=== PATIENT | female | born 1955 | race Caucasian/White ===

== ENCOUNTER 2021-11-04 21:58 | Emergency (ER) | payer OTHER ==
[~2021-11-04] VITALS: Ht 152.4 cm; Wt 100.0 kg
[2021-11-04 22:13] VITALS: BP 160/103
[2021-11-04] MEDS ORDERED: EPINEPHrine HCL 1 MG/1 ML AMP IM ONE (22:15)
[2021-11-04] MEDS ORDERED: methylPREDNISolone SOD SUCC 125 MG/2 ML VL IV ONE (22:15)
[2021-11-04] MEDS ORDERED: TRANEXAMIC ACID 1,000 MG in SODIUM CHL 0.9% 100 ML IV ONE (22:15)
[2021-11-04] MEDS ORDERED: IPRATROPIUM BROM 0.5 MG/2.5ML INH SOL NEB ONE (23:45)
[2021-11-04] MEDS ORDERED: ALBUTEROL SULF 2.5 MG/0.5ML(0.5%) NEB SOLN NEB ONE (23:45)
== END 2021-11-05 02:08 | disposition home or self-care (01) ==
LOC: ER 22:04
DX: T78.40XA Allergy, unspecified, initial encounter (principal); T46.4X5A Adverse effect of angiotensin-converting-enzyme inhibitors, initial encounter; Y92.89 Other specified places as the place of occurrence of the external cause; I11.0 Hypertensive heart disease with heart failure; I50.9 Heart failure, unspecified
CPT/HCPCS: 94640; 96372; 96374; 99283; J0171; J2930; J7644

== ENCOUNTER 2022-01-10 20:50 | Inpatient (IN) | payer OTHER ==
[~2022-01-10] VITALS: Ht 157.5 cm; Wt 109.0 kg
[2022-01-10] MEDS ORDERED: IPRATROPIUM BROM 0.5 MG/2.5ML INH SOL NEB ONE ×2 (21:15→22:30)
[2022-01-10] MEDS ORDERED: ALBUTEROL SULF 2.5 MG/0.5ML(0.5%) NEB SOLN NEB ONE ×2 (21:15→22:30)
[2022-01-10 21:42] LABS: Basophils # (auto) 0 10 ^3/uL (0-0.2); Basophils % (auto) 0.3 % (0.0-2.0); Eosinophils # (auto) 0.1 10 ^3/uL (0-0.8); Eosinophils % (auto) 1.1 % (0.0-7.0); Hematocrit 40.2 % (36.0-46.0); Hemoglobin 13.3 g/dL (12.2-16.2); Lymphocytes # (auto) 1.7 10 ^3/uL (0.4-5.4); Lymphocytes % (auto) 12.8 % (10.0-50.0); Mean Corpuscular Hgb Conc. 33.2 g/dL (32.0-36.0); Mean Corpuscular Volume 84.5 fL (80.0-100.0); Monocytes # (auto) 1.1 10 ^3/uL (0-1.3); Monocytes % (auto) 8.3 % (0.0-12.0); Neutrophils # (auto) 10.2 10 ^3/uL (1.6-8.6); Neutrophils % (auto) 77.5 % (37.0-80.0); Nucleated Red Blood Cells % 0.1 %; Red Blood Cells 4.76 10^6/uL (4.0-5.20); Red Cell Distribution Width 15.9 % (11.8-14.3); White Blood Cell 13.2 10^3/uL (4.4-10.8)
[2022-01-10 22:20] LABS: BUN/Creatinine Ratio 13.8; Potassium 3.5 mmol/L (3.5-5.1)
[2022-01-10 22:21] LABS: Calcium 8.4 mg/dL (8.5-10.1); Total Protein 6.6 g/dL (6.4-8.2)
[2022-01-10 22:22] LABS: Bilirubin, Total 0.3 mg/dL (0.2-1.0)
[2022-01-10 22:29] LABS: Partial Thromboplastin Time 30.3 sec (24.6-33.4)
[2022-01-10] MEDS ORDERED: methylPREDNISolone SOD SUCC 125 MG/2 ML VL IV ONE (22:30)
[2022-01-10] MEDS ORDERED: MAGNESIUM SULFATE 1GM/100ML 100 ML IV ONE (22:30)
[2022-01-11] MEDS ORDERED: ONDANSETRON HCL 4 MG/2 ML VIAL IV PRN (02:15)
[2022-01-11] MEDS ORDERED: HYDROcodone-ACET 5/325MG TAB PO PRN (02:15)
[2022-01-11] MEDS ORDERED: ACETAMINOPHEN 325 MG TAB PO PRN (02:15)
[2022-01-11] MEDS ORDERED: DOCUSATE SOD 100 MG CAP PO PRN (02:15)
[2022-01-11] MEDS ORDERED: MORPHINE SULFATE INJ 2 MG/ml SYRG IV PRN (02:45)
[2022-01-11] MEDS ORDERED: NITROGLYCERIN 0.4 MG SL TAB SL PRN (02:45)
[2022-01-11] MEDS: SODIUM CHLOR 0.9% PF (SALINE LOCK) 10ML VIAL/SYR IV SCH ×2 (06:12→14:00)
[2022-01-11] MEDS: methylPREDNISolone SOD SUCC 40 MG/ML VL IV SCH ×2 (06:15→14:00)
[2022-01-11 06:39] LABS: Basophils # (auto) 0 10 ^3/uL (0-0.2); Basophils % (auto) 0.3 % (0.0-2.0); Eosinophils # (auto) 0 10 ^3/uL (0-0.8); Eosinophils % (auto) 0.1 % (0.0-7.0); Hematocrit 43.6 % (36.0-46.0); Hemoglobin 13.9 g/dL (12.2-16.2); Lymphocytes # (auto) 0.6 10 ^3/uL (0.4-5.4); Lymphocytes % (auto) 4.7 % (10.0-50.0); Mean Corpuscular Hemoglobin 27.5 pg (28.0-32.0); Mean Corpuscular Volume 85.9 fL (80.0-100.0); Monocytes # (auto) 0.1 10 ^3/uL (0-1.3); Monocytes % (auto) 1.2 % (0.0-12.0); Neutrophils # (auto) 11.7 10 ^3/uL (1.6-8.6); Neutrophils % (auto) 93.7 % (37.0-80.0); Nucleated Red Blood Cells % 0.1 %; Red Blood Cells 5.07 10^6/uL (4.0-5.20); Red Cell Distribution Width 15.9 % (11.8-14.3); White Blood Cell 12.5 10^3/uL (4.4-10.8)
[2022-01-11 07:07] LABS: Calcium 8.8 mg/dL (8.5-10.1)
[2022-01-11 07:11] LABS: BUN/Creatinine Ratio 13.5
[2022-01-11 07:12] LABS: Bilirubin, Total 0.7 mg/dL (0.2-1.0); Total Protein 6.8 g/dL (6.4-8.2)
[2022-01-11] MEDS ORDERED: FAMOTIDINE (10MG/ML) 2ML VL IV SCH (10:00)
[2022-01-11] MEDS: APIXABAN 5 MG TAB PO SCH (12:38)
[2022-01-11] MEDS ORDERED: PROM25TA5 OR (12:46)
[2022-01-11] MEDS ORDERED: MONT-8 OR (12:46)
[2022-01-11] MEDS ORDERED: APIX5TAB PO (12:46)
[2022-01-11] MEDS: IPRATROPIUM BROM 0.5 MG/2.5ML INH SOL NEB PRN ×2 (14:57→22:02)
[2022-01-11] MEDS: ALBUTEROL SULF 2.5 MG/0.5ML(0.5%) NEB SOLN NEB PRN ×2 (14:57→22:01)
[2022-01-11 23:52] VITALS: BP 133/80
[2022-01-12] MEDS: APIXABAN 5 MG TAB PO SCH ×2 (00:54→10:16)
[2022-01-12] MEDS: SODIUM CHLOR 0.9% PF (SALINE LOCK) 10ML VIAL/SYR IV SCH ×3 (00:55→14:10)
[2022-01-12] MEDS: methylPREDNISolone SOD SUCC 40 MG/ML VL IV SCH ×3 (00:55→14:16)
[2022-01-12] MEDS: ALBUTEROL SULF 2.5 MG/0.5ML(0.5%) NEB SOLN NEB PRN ×2 (03:52→13:28)
[2022-01-12] MEDS: IPRATROPIUM BROM 0.5 MG/2.5ML INH SOL NEB PRN ×2 (03:52→13:28)
[2022-01-12 07:29] LABS: Basophils # (auto) 0.1 10 ^3/uL (0-0.2); Basophils % (auto) 0.4 % (0.0-2.0); Eosinophils # (auto) 0 10 ^3/uL (0-0.8); Eosinophils % (auto) 0.1 % (0.0-7.0); Hematocrit 41.7 % (36.0-46.0); Hemoglobin 13.4 g/dL (12.2-16.2); Lymphocytes # (auto) 1.9 10 ^3/uL (0.4-5.4); Lymphocytes % (auto) 13.7 % (10.0-50.0); Mean Corpuscular Hemoglobin 27.8 pg (28.0-32.0); Mean Corpuscular Hgb Conc. 32.1 g/dL (32.0-36.0); Mean Corpuscular Volume 86.6 fL (80.0-100.0); Monocytes # (auto) 1.3 10 ^3/uL (0-1.3); Monocytes % (auto) 9.5 % (0.0-12.0); Neutrophils # (auto) 10.7 10 ^3/uL (1.6-8.6); Neutrophils % (auto) 76.3 % (37.0-80.0); Red Blood Cells 4.81 10^6/uL (4.0-5.20); Red Cell Distribution Width 15.9 % (11.8-14.3)
[2022-01-12 08:48] LABS: Potassium 3.8 mmol/L (3.5-5.1)
[2022-01-12 08:49] LABS: Albumin 2.8 g/dL (3.4-5.0); BUN/Creatinine Ratio 21.4; Bilirubin, Total 0.3 mg/dL (0.2-1.0); Calcium 9.1 mg/dL (8.5-10.1); Total Protein 6.5 g/dL (6.4-8.2)
[2022-01-12] MEDS: PANTOPRAZOLE 40 MG/10 ML VIAL INJ IV SCH ×2 (10:00→10:16)
[2022-01-12 17:22] VITALS: BP 125/88
== END 2022-01-12 15:59 | disposition home or self-care (01) | DRG 189 ==
LOC: ER 20:50 → UNDOADMIN 01-11 02:42 → TELE 01-11 02:42 → ER 01-12 17:22
PROVIDERS: ADMIT Nurse Practitioner Family; ATTEND Nurse Practitioner Family
DX: J96.21 Acute and chronic respiratory failure with hypoxia (principal); J44.1 Chronic obstructive pulmonary disease with (acute) exacerbation; I11.0 Hypertensive heart disease with heart failure; I50.9 Heart failure, unspecified; D72.829 Elevated white blood cell count, unspecified; Z86.711 Personal history of pulmonary embolism; Z87.01 Personal history of pneumonia (recurrent); Z20.822 Contact with and (suspected) exposure to COVID-19
CPT/HCPCS: 36415; 71045; 80053; 83880; 84484; 85025; 85610; 85730; 87426; 87804; 94640; 96365; 96375; C9113; G0378; J3490

== ENCOUNTER 2023-03-30 15:58 | Emergency (ER) | payer OTHER ==
[~2023-03-30] VITALS: Ht 157.5 cm; Wt 104.0 kg
[~2023-03-30 15:58] MED LIST: APIX5TAB PO; MONT-8 OR; PROM25TA10 OR
[2023-03-30 17:06] LABS: Basophils # (auto) 0 10 ^3/uL (0-0.2); Basophils % (auto) 0.4 % (0.0-2.0); Eosinophils # (auto) 0.3 10 ^3/uL (0-0.8); Eosinophils % (auto) 2.2 % (0.0-7.0); Hematocrit 40.4 % (36.0-46.0); Hemoglobin 13.2 g/dL (12.2-16.2); Lymphocytes # (auto) 1.5 10 ^3/uL (0.4-5.4); Lymphocytes % (auto) 11.8 % (10.0-50.0); Mean Corpuscular Hemoglobin 28.1 pg (28.0-32.0); Mean Corpuscular Hgb Conc. 32.6 g/dL (32.0-36.0); Mean Corpuscular Volume 86.2 fL (80.0-100.0); Monocytes # (auto) 1.4 10 ^3/uL (0-1.3); Monocytes % (auto) 11.3 % (0.0-12.0); Neutrophils # (auto) 9.5 10 ^3/uL (1.6-8.6); Neutrophils % (auto) 74.3 % (37.0-80.0); Nucleated Red Blood Cells % 0.1 %; Red Blood Cells 4.69 10^6/uL (4.0-5.20); Red Cell Distribution Width 16.9 % (11.8-14.3); White Blood Cell 12.7 10^3/uL (4.4-10.8)
[2023-03-30 17:26] LABS: Alanine Aminotransferase 20 U/L (7-40); Alkaline Phosphatase 91 U/L (46-116); Calcium 9.1 mg/dL (8.5-10.1); Chloride 102 mmol/L (98-107); INR 1.04 (0.9-1.15); Partial Thromboplastin Time 31.4 SEC (24.5-34.5); Prothrombin Time 10.9 sec (9.3-11.8)
[2023-03-30 17:27] LABS: Anion Gap 5 (5-15); Aspartate Aminotransferase 21 U/L (13-40); BUN/Creatinine Ratio 20.7 (10.0-20.0); Bilirubin, Total 0.4 mg/dL (0.2-1.0); Blood Urea Nitrogen 12 mg/dL (9-23); Carbon Dioxide 33 mmol/L (20-30); Glucose 121 mg/dL (74-106); Potassium 3.9 mmol/L (3.5-5.1); Sodium 140 mmol/L (136-145)
[2023-03-30 17:32] LABS: Lactic Acid w/Reflex 2.1 mmol/L (0.4-2.0)
[2023-03-30] MEDS ORDERED: SODIUM CHLORIDE 0.9% 1,000 ML IV ONE (17:45)
[2023-03-30] MEDS ORDERED: ACETAMINOPHEN 325 MG TAB PO ONE (17:45)
[2023-03-30] MEDS ORDERED: levoFLOXacin 750MG 150 ML IV ONE (17:45)
[2023-03-30 20:00] LABS: Free T3 3.1 pg/mL (2.3-4.2); Free T4 (Free Thyroxine) 1.04 ng/dL (0.89-1.76)
[2023-03-30 22:25] VITALS: BP 115/84; RESP 22; TEMP 99; O2SAT 93
[2023-03-30 22:35] VITALS: PULSE 131
[2023-03-31 00:23] LABS: Rapid Influenza A Negative (Negative); Rapid Influenza B Negative (Negative)
[2023-03-31 00:24] LABS: COVID19 ANTIGEN SOFIA FIA NEGATIVE (NEGATIVE)
== END 2023-03-31 00:13 | disposition left against medical advice (07) ==
LOC: ER 15:58
DX: U07.1 COVID-19 (principal); A41.9 Sepsis, unspecified organism; J18.9 Pneumonia, unspecified organism; R00.0 Tachycardia, unspecified; D72.829 Elevated white blood cell count, unspecified; R50.9 Fever, unspecified; I11.0 Hypertensive heart disease with heart failure; I50.9 Heart failure, unspecified
CPT/HCPCS: 36415; 36600; 71045; 80053; 82805; 83605; 83880; 84439; 84443; 84481; 84484; 85025; 85379; 85610; 85730; 87040; 87426; 87804; 93005; 99291

== ENCOUNTER 2023-04-11 17:47 | Emergency (ER) | payer OTHER ==
[~2023-04-11] VITALS: Ht 165.1 cm; Wt 140.0 kg
[2023-04-11 21:34] VITALS: BP 160/70; PULSE 117; RESP 22; TEMP 98; O2SAT 97
[2023-04-11] MEDS: HYDROcodone-ACET 10/325MG TAB PO ONE (22:00)
[2023-04-11] MEDS ORDERED: HYDR-4798 PO (23:55)
== END 2023-04-12 00:24 | disposition home or self-care (01) ==
LOC: EDBD 17:47 → ER 17:47
DX: S93.401A Sprain of unspecified ligament of right ankle, initial encounter (principal); I11.0 Hypertensive heart disease with heart failure; I50.9 Heart failure, unspecified; Z88.1 Allergy status to other antibiotic agents; X50.1XXA Overexertion from prolonged static or awkward postures, initial encounter; Y93.89 Activity, other specified; Y92.89 Other specified places as the place of occurrence of the external cause; Y99.8 Other external cause status
CPT/HCPCS: 73610

== ENCOUNTER 2023-10-06 09:42 | Emergency (ER) | payer OTHER ==
[~2023-10-06] VITALS: Ht 152.4 cm; Wt 136.3 kg
[~2023-10-06 09:42] MED LIST changes: +HYDR-4798 PO
[2023-10-06 10:26] VITALS: BP 134/62; PULSE 110; RESP 15; TEMP 98.1; O2SAT 94
== END 2023-10-06 10:38 | disposition home or self-care (01) ==
LOC: EDBD 09:42 → ER 09:42
DX: I83.021 Varicose veins of left lower extremity with ulcer of thigh (principal); L97.129 Non-pressure chronic ulcer of left thigh with unspecified severity; I11.0 Hypertensive heart disease with heart failure; I50.9 Heart failure, unspecified; Z88.1 Allergy status to other antibiotic agents

== ENCOUNTER 2024-05-20 11:20 | Emergency (ER) | payer OTHER ==
[~2024-05-20] VITALS: Ht 154.9 cm; Wt 100.0 kg
--- NOTE | 2024-05-20 11:36 | ED.PDOC ---
GI ASSESSMENT HPI Comments 69 year old female FLORIAN presents to the ED with chief complaint of N/V/D. Patient reports that she has been experiencing nausea, vomiting, diarrhea, and diffuse abdominal pain for the past 4 days since eating [employer]. Patient relays that her pain is currently a 4/10, slightly improved since onset. Patient denies any hematemesis, dysuria, fever, chills, melena, chest pain, or SOB. 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, Medications, Allergies Allergies: Coded Allergies: Cephalexin (Verified Allergy, Unknown, 01/11/22) Doxycycline (Verified Allergy, Unknown, 01/11/22) Lisinopril (Verified Allergy, Unknown, 10/06/23) Home Meds Active Scripts Hydrocodone-Acetaminophen (Hydrocodone Bitartrate/AC 10-325 mg) 1 Tab Tab, 1 TAB PO Q8HP PRN, #15 TAB Prov:LORRAINE BENAVIDES PAC 04/11/23 Reported Medications Montelukast Sodium (MONTELUKAST SODIUM) 10 Mg Tab, 10 MG OR, TAB 01/11/22 Apixaban Base (ELIQUIS) 5 Mg Tab, 5 MG PO BID, TAB 01/11/22 Promethazine Hcl (Promethazine Hcl) 25 Mg Tab, 5 MG OR, TAB 01/11/22 Information Source: Patient, Emergency Med Personnel Mode of Arrival: EMS Timing: Days Duration: Since onset Prehospital treatment: None Quality: Aching Vomitus: Watery Stool: Watery Severity: Moderate Recent: Possible spoiled food Recent Hx of: None Pain Location: Diffuse Modifying Factors: Nothing Associated sign and symptoms: Nausea, Vomiting, Diarrhea, Abdominal Pain Past Medical History PAST MEDICAL HISTORY: Cancer (Skin cancer), CHF, COPD, HTN, PE Past Medical History (Other): Cerebral Palsy Surgical History: Cholecystectomy, , Tonsillectomy, Denies all surgeries Surgical History (Other): Adenoidectomy, DNC, Bilateral hand surgery, bilateral foot surgery [employer] History: Denies all [employer] Hx Family History Family History: Reviewed,noncontributory to illness Social History Smoker: Non-Smoker Alcohol: Denies ETOH Use Drugs: Denies Drug Use Lives In: Home Constitutional: denies: chills, diaphoresis, fatigue, fever, malaise, sweats, weakness, others EENTM: denies: blurred vision, double vision, ear bleeding, ear discharge, ear drainage, ear pain, ear ringing, eye pain, eye redness, hearing loss, mouth pain, mouth swelling, nasal discharge, nose bleeding, nose congestion, nose pain, photophobia, tearing, throat pain, throat swelling, voice changes, others Respiratory: denies: cough, hemoptysis, orthopnea, SOB at rest, shortness of breath, SOB with excertion, stridor, wheezing, others Cardiovascular: denies: chest pain, dizzy spells, diaphoresis, Dyspnea on exertion, edema, irregular heart beat, left arm pain, lightheadedness, palpitations, PND, syncope, others Gastrointestinal: reports: abdominal pain, diarrhea, nausea, vomiting; denies: abdomen distended, blood streaked bowels, constipated, dysphagia, difficulty swallowing, hematemesis, melena, poor appetite, poor fluid intake, rectal bleeding, rectal pain, others Genitourinary: denies: abnormal vagina bleeding, burning, dyspareunia, dysuria, flank pain, frequency, hematuria, incontinence, pain, , vagina di scharge, urgency, others Neurological: denies: dizziness, fainting, headache, left sided numbness, left sided weakness, numbness, paresthesia, pre-existing deficit, right sided numbness, right sided weakness, seizure, speech problems, tingling, tremors, weakness, others Musculoskeletal: denies: back pain, gout, joint pain, joint swelling, muscle pain, muscle stiffness, neck pain, others Integumetry: denies: bruises, change in color, change in hair/nails, dryness, laceration, lesions, lumps, rash, wounds, others Allergic/Immunocompromised: denies: Difficulty Healing, Frequent Infections, Hives, Itching, others Hematologic/Lymphatic: denies: anemia, blood clots, easy bleeding, easy bruising, swollen glands, others Endocrine: denies: excessive hunger, excessive sweating, excessive thirst, excessive urination, flushing, intolerance to cold, intolerance to heat, unexplained weight gain, unexplained weight loss, others Psychiatric: denies: anxiety, bipolar disorder, depression, hopeless, panic disorder, schizophrenia, sleepless, suicidal, others All Other Systems: Reviewed and Negative Physical Exam General Appearance: Moderate Distress, Obese HEENT: Normal ENT Inspection, Pharynx Normal, TMs Normal Neck: Full Range of Motion, Non-Tender, Normal, Normal Inspection Respiratory: Chest Non-Tender, Lungs Clear, No Accessory Muscle Use, No Respiratory Distress, Normal Breath Sounds Cardiovascular: No Edema, No JVD, No Murmur, No Gallop, Normal Peripheral Pulses, Regular Rate/Rhythm Breast Exam: Deferred Gastrointestinal: Diffuse, No Organomegaly, No Pulsatile Mass, Normal Bowel Sounds, Soft, Tenderness Genitalia: Deferred Pelvic: Deferred Rectal: Deferred Extremities: No calf tenderness, Normal capillary refill, No pedal edema, Other (Patient has cerebral palsy) Musculoskeletal : Apperance: Normal Neurologic: Alert, wildlife biology internship II-XII nml as Tested, Motor Weakness, Normal Affect, Normal Mood, No Sensory Deficits Cerebellar Function: Normal Reflexes: Normal Skin: Dry, Normal Color, Warm Lymphatic: No Adenopathy EKG EKG : Pulse Rate (adult): 103 [place]: Normal Cardiac Rhythm: ST Block: None Hypertrophy: None ST: Normal Was a procedure done? Was a procedure done?: No GI differential Dx Differential Diagnosis: Gastroenteritis, Dehydration, Electrolyte Imbalance, Food Poisoning, Bacterial, Viral X-Ray, Labs, Meds, VS Vital Signs Date Time Temp Pulse Resp B/P (MAP) Pulse Ox O2 Delivery O2 Flow Rate FiO2 05/20/24 13:05 102 05/20/24 12:49 105 12 96 Nasal Cannula* 3 32 05/20/24 11:54 97.6 101 18 148/94 (112) 95 97.6 05/20/24 11:36 103 05/20/24 11:33 98.3 104 20 136/77 (96) 97 98.3 05/20/24 11:28 103 Lab Test 05/20/24 12:58 05/20/24 11:40 Range/Units Urine Color Pending Urine Clarity Pending Urine pH Pending Urine Specific [place] Pending Urine Protein Pending Urine Ketones Pending Urine Blood Pending Urine Nitrite Pending Urine Bilirubin Pending Urine Urobilinogen Pending Urine Leukocyte Esterase Pending Urine RBC Pending Urine Microscopic WBC Pending Urine Squamous Epithelial Cells Pending Urine Bacteria Pending Urine Glucose Pending White Blood Count 8.1 4.4-10.8 10^3/uL Red Blood Count 4.40 4.0-5.20 10^6/uL Hemoglobin 12.2 12.2-16.2 g/dL Hematocrit 37.0 36.0-46.0 % Mean Corpuscular Volume 83.9 80.0-100.0 fL Mean Corpuscular Hemoglobin 27.7 L 28.0-32.0 pg Mean Corpuscular Hemoglobin Concent 32.9 32.0-36.0 g/dL Red Cell Distribution Width 17.0 H 11.8-14.3 % Platelet Count 222 140-450 10^3/uL Mean Platelet Volume 7.1 6.9-10.8 fL Neutrophils (%) (Auto) 64.2 37.0-80.0 % Lymphocytes (%) (Auto) 20.2 10.0-50.0 % Monocytes (%) (Auto) 14.9 H 0.0-12.0 % Eosinophils (%) (Auto) 0.4 0.0-7.0 % Basophils (%) (Auto) 0.3 0.0-2.0 % Neutrophils # (Auto) 5.2 1.6-8.6 10 ^3/uL Lymphocytes # (Auto) 1.6 0.4-5.4 10 ^3/uL Monocytes # (Auto) 1.2 0-1.3 10 ^3/uL Eosinophils # (Auto) 0 0-0.8 10 ^3/uL Basophils # (Auto) 0 0-0.2 10 ^3/uL Nucleated Red Blood Cells 0.0 % Sodium Level 135 L 136-145 mmol/L Potassium Level 3.0 L 3.5-5.1 mmol/L Chloride Level 99 98-107 mmol/L Carbon Dioxide Level 31 20-31 mmol/L Anion Gap 5 5-15 Blood Urea Nitrogen 5 L 9-23 mg/dL Creatinine 0.60 0.550-1.02 mg/dL Glomerular Filtration Rate Calc 98 >90 mL/min BUN/Creatinine Ratio 8.3 L 10.0-20.0 Serum Glucose 117 H 74-106 mg/dL Calcium Level 9.1 8.7-10.4 mg/dL Total Bilirubin 0.4 0.2-1.0 mg/dL Aspartate Amino Transferase (AST) 23 13-40 U/L Alanine Aminotransferase (ALT) 18 7-40 U/L Alkaline Phosphatase 89 46-116 U/L Total Protein 7.1 5.7-8.2 g/dL Albumin 4.0 3.2-4.8 g/dL Lipase 29 12-53 U/L Current Medications Medications (Trade) Dose Ordered Sig/Mahad Route Start Time Stop Time Status Last Admin Sodium Chloride 500 ml @ 500 mls/hr Q1H ONCE IVB 05/20/24 11:45 05/20/24 12:44 DC 05/20/24 12:36 The patient's CBC and chemistry panel is within normal limits The patient was given normal saline at bolus of 500 cc The patient refused a CT scan and states that she only had food poisoning At this time the patient was more asymptomatic in his being discharged The patient was given a prescription of Zofran. The patient is being discharged at this time we will follow up with the primary care doctor The patient was also given Protonix Time of 1ST Reevaluation: 13:10 Reevaluation 1ST: Improved Patient Education/Counseling: Diagnosis, Treatment, Prognosis, Need For Follow Up Family Education/Counseling: No Family Present Departure 1 Departure Time of Disposition: 13:10 Impression: Primary Impression: Food poisoning Disposition: 01 HOME / SELF CARE / HOMELESS Condition: Fair Discharged With: Self Critical Care Note Critical Care Time?: No Stability Stability form required: No Heart Score Heart Score: Heart Score Response (Comments) Value History N/A 0 EKG N/A 0 Age N/A 0 Risk Factors N/A 0 Troponin N/A 0 Total 0 I personally scribed for GINI MCCORD MD ([email or web address]) on 05/20/24 at 11:36. Electronically submitted by Ronan Dale ([email or web address]). GINI MCCORD MD May 20, 2024 11:36
[2024-05-20] MEDS: MORPHINE SULFATE 4 MG/ML SYR/VIAL IV ONE (11:45)
[2024-05-20] MEDS: ONDANSETRON HCL 4 MG/2 ML VIAL IV ONE (11:45)
[2024-05-20 11:46] LABS: Basophils # (auto) 0 10 ^3/uL (0-0.2); Basophils % (auto) 0.3 % (0.0-2.0); Eosinophils # (auto) 0 10 ^3/uL (0-0.8); Eosinophils % (auto) 0.4 % (0.0-7.0); Hemoglobin 12.2 g/dL (12.2-16.2); Lymphocytes # (auto) 1.6 10 ^3/uL (0.4-5.4); Lymphocytes % (auto) 20.2 % (10.0-50.0); Mean Corpuscular Hemoglobin 27.7 pg (28.0-32.0); Mean Corpuscular Hgb Conc. 32.9 g/dL (32.0-36.0); Mean Corpuscular Volume 83.9 fL (80.0-100.0); Monocytes # (auto) 1.2 10 ^3/uL (0-1.3); Monocytes % (auto) 14.9 % (0.0-12.0); Neutrophils # (auto) 5.2 10 ^3/uL (1.6-8.6); Neutrophils % (auto) 64.2 % (37.0-80.0); Platelet Count (auto) 222 10^3/uL (140-450); White Blood Cell 8.1 10^3/uL (4.4-10.8)
[2024-05-20 11:54] VITALS: TEMP 97.6
[2024-05-20 12:03] LABS: Alanine Aminotransferase 18 U/L (7-40); Alkaline Phosphatase 89 U/L (46-116); Anion Gap 5 (5-15); Aspartate Aminotransferase 23 U/L (13-40); BUN/Creatinine Ratio 8.3 (10.0-20.0); Calcium 9.1 mg/dL (8.7-10.4); Carbon Dioxide 31 mmol/L (20-31); Chloride 99 mmol/L (98-107); Lipase 29 U/L (12-53); Total Protein 7.1 g/dL (5.7-8.2)
[2024-05-20 12:04] LABS: Bilirubin, Total 0.4 mg/dL (0.2-1.0)
[2024-05-20 12:08] LABS: Blood Urea Nitrogen 5 mg/dL (9-23); Glucose 117 mg/dL (74-106); Sodium 135 mmol/L (136-145)
[2024-05-20] MEDS: SODIUM CHLORIDE 0.9% 500 ML IVB ONE (12:36)
[2024-05-20 12:49] VITALS: PULSE 105; RESP 12; O2SAT 96
[2024-05-20] MEDS ORDERED: PANT40TA2 PO (13:19)
[2024-05-20] MEDS ORDERED: ZOFR4T PO (13:19)
[2024-05-20 13:37] LABS: Urine Bacteria FEW /hpf (None Seen); Urine Blood 2+ /uL (Negative); Urine Protein, UAD TRACE (Negative); Urine Specific Gravity 1.003 (1.001-1.035); Urine Squamous Epithelial Cell FEW /hpf (<5); Urine Urobilinogen Normal (Negative); Urine WBC 194 /HPF (0-5); Urine pH 6.5 (5.0-9.0)
[2024-05-20 13:49] LABS: Urine Clarity Cloudy (Clear); Urine Color Light-Yellow (Yellow)
[2024-05-20 13:50] VITALS: BP 140/89; PULSE 103; RESP 18; O2SAT 95
[2024-05-20] MEDS ORDERED: CIPR-173 PO (14:15)
[2024-05-20] MEDS: POTASSIUM CHL 20 Meq TABLET PO ONE (14:23)
[2024-05-20] MEDS: POTASSIUM EFFERVESENT TAB 25 MEQ PO ONE (14:26)
--- NOTE | 2024-05-23 06:57 | ECG ---
[facility] Test Date: 2024-05-20 Test Time: 11:28:37 Pat Name: GAGE NELSON Department: ED Room: Gender: F Access Assoc: jamison : 1955 Requested By: GINI MCCORD Order Number: [id number] Reading MD: Measurements Intervals [place] Rate: 103 P: 46 NE: 177 QRS: -9 QRSD: 75 T: 36 QT: 364 QTc: 477 Interpretive Statements Sinus tachycardia Low voltage, precordial leads Please click the below link to view image of tracing.
== END 2024-05-20 14:41 | disposition home or self-care (01) ==
LOC: EDUNIT# 11:20 → EDBD 11:20 → ER 11:24
DX: A05.9 Bacterial foodborne intoxication, unspecified (principal); I11.0 Hypertensive heart disease with heart failure; I50.9 Heart failure, unspecified; J44.9 Chronic obstructive pulmonary disease, unspecified; G80.9 Cerebral palsy, unspecified; Z85.828 Personal history of other malignant neoplasm of skin; Z90.49 Acquired absence of other specified parts of digestive tract; Z90.89 Acquired absence of other organs; Z98.890 Other specified postprocedural states; Z88.1 Allergy status to other antibiotic agents; Z88.8 Allergy status to other drugs, medicaments and biological substances
CPT/HCPCS: 36415; 80053; 81001; 83690; 85025; 96361; 96374; 99283; J2405; J7040; 93005

== ENCOUNTER 2024-06-15 05:16 | Inpatient (IN) | payer OTHER, MEDICARE ==
[~2024-06-15] VITALS: Ht 160 cm; Wt 99.6 kg
[~2024-06-15 05:16] MED LIST changes: +CIPR-173 PO; +PANT40TA2 PO; +ZOFR4T PO
--- NOTE | 2024-06-15 05:46 | ECG ---
[facility] Test Date: 2024-06-15 Test Time: 05:40:54 Pat Name: GAGE NELSON Department: ED Room: [address] [place] [address] Gender: F Housing Officer: OBINNA : 1955 Requested By: EMERGENCY EMERGENCY Order Number: [id number] Reading MD: Kurtis Shen Measurements Intervals [place] Rate: 97 P: 56 SC: 201 QRS: -15 QRSD: 72 T: 28 QT: 388 QTc: 493 Interpretive Statements Sinus rhythm Low voltage, precordial leads Left ventricular hypertrophy Anterior Q waves, possibly due to LVH Electronically Signed On 06-15-2024 17:11:12 PDT by Kurtis Shen Please click the below link to view image of tracing.
[2024-06-15 05:50] VITALS: PULSE 100; RESP 18; O2SAT 97
[2024-06-15 06:26] LABS: Basophils # (auto) 0 10 ^3/uL (0-0.2); Basophils % (auto) 0.3 % (0.0-2.0); Eosinophils # (auto) 0.1 10 ^3/uL (0-0.8); Eosinophils % (auto) 0.4 % (0.0-7.0); Hematocrit 38.5 % (36.0-46.0); Hemoglobin 12.7 g/dL (12.2-16.2); Lymphocytes # (auto) 1.1 10 ^3/uL (0.4-5.4); Lymphocytes % (auto) 8.3 % (10.0-50.0); Mean Corpuscular Hemoglobin 27.2 pg (28.0-32.0); Mean Corpuscular Hgb Conc. 33.1 g/dL (32.0-36.0); Mean Corpuscular Volume 82.2 fL (80.0-100.0); Monocytes # (auto) 0.8 10 ^3/uL (0-1.3); Monocytes % (auto) 5.9 % (0.0-12.0); Neutrophils # (auto) 11.4 10 ^3/uL (1.6-8.6); Neutrophils % (auto) 85.1 % (37.0-80.0); Platelet Count (auto) 228 10^3/uL (140-450); Red Blood Cells 4.68 10^6/uL (4.0-5.20); White Blood Cell 13.4 10^3/uL (4.4-10.8)
--- NOTE | 2024-06-15 07:22 | ED.PDOC ---
GI ASSESSMENT HPI Comments 69 y/o F, BIBA, with PMHx of skin cancer, COPD, HTN, and PE presents to the ED for CC of abdominal pain. EMS reports, patient is coming from home where she complains of generalized abdominal pain with associated nausea and vomiting [id number]. Patient relays, that she ate tortilla chips and chocolate covered almonds last night (06/14/24); when symptoms began shortly after. Patient was recently seen at [facility] for similar symptoms on 05/20/24 for DX: Food Poisoning. Patient denies change in diet, fever, chills, or diarrhea. No other symptoms or modifying factors present at this time. Chief Complaint: Abdominal Pain Time Seen by MD: 06:45 Primary Care Provider: DALIA Reviewed Notes: Nurses Notes, Mold Machine Operator Notes, Medications, Allergies Allergies: Coded Allergies: Cephalexin (Verified Allergy, Unknown, 01/11/22) Doxycycline (Verified Allergy, Unknown, 01/11/22) Lisinopril (Verified Allergy, Unknown, 10/06/23) Home Meds Active Scripts Ciprofloxacin Hcl (Cipro) 500 Mg Tab, 1 TAB PO BID, #14 TAB Prov:GINI MCCORD MD 05/20/24 Pantoprazole Sodium Sesquihydr (Protonix) 40 Mg Tab, 40 MG PO DAILY, #30 TAB Prov:GINI MCCORD MD 05/20/24 Ondansetron Odt 4MG Tab (ZOFRAN PO) 4 Mg Tb, 4 MG PO Q8HP PRN for 7 Days, #21 TAB ODT TAB-DISSOLVE IN MOUTH, THEN SWALLOW Prov:GINI MCCORD MD 05/20/24 Hydrocodone-Acetaminophen (Hydrocodone Bitartrate/AC 10-325 mg) 1 Tab Tab, 1 TAB PO Q8HP PRN, #15 TAB Prov:LORRAIEN BENAVIDES PAC 04/11/23 Reported Medications Montelukast Sodium (MONTELUKAST SODIUM) 10 Mg Tab, 10 MG OR, TAB 01/11/22 Apixaban Base (ELIQUIS) 5 Mg Tab, 5 MG PO BID, TAB 01/11/22 Promethazine Hcl (Promethazine Hcl) 25 Mg Tab, 5 MG OR, TAB 01/11/22 Information Source: Patient, Emergency Med Personnel Mode of Arrival: EMS Timing: Hours Duration: Since onset Prehospital treatment: None Quality: None Vomitus: Watery Stool: Normal Severity: Moderate Recent: None Recent Hx of: None Pain Location: LLQ Modifying Factors: Nothing Associated sign and symptoms: Nausea, Vomiting Past Medical History PAST MEDICAL HISTORY: Cancer, COPD, HTN, PE Surgical History: Cholecystectomy, , Tonsillectomy, Denies all surgeries [employer]SH[employer] History: Denies all [employer] Hx Family History Family History: Reviewed,noncontributory to illness Social History Smoker: Non-Smoker Alcohol: Denies ETOH Use Drugs: Denies Drug Use Lives In: Home Constitutional: denies: chills, diaphoresis, fatigue, fever, malaise, sweats, weakness, others EENTM: denies: blurred vision, double vision, ear bleeding, ear discharge, ear drainage, ear pain, ear ringing, eye pain, eye redness, hearing loss, mouth pain, mouth swelling, nasal discharge, nose bleeding, nose congestion, nose pain, photophobia, tearing, throat pain, throat swelling, voice changes, others Respiratory: denies: cough, hemoptysis, orthopnea, SOB at rest, shortness of breath, SOB with excertion, stridor, wheezing, others Cardiovascular: denies: chest pain, dizzy spells, diaphoresis, Dyspnea on exertion, edema, irregular heart beat, left arm pain, lightheadedness, palpitations, PND, syncope, others Gastrointestinal: reports: abdominal pain, nausea, vomiting; denies: abdomen distended, blood streaked bowels, constipated, diarrhea, dysphagia, difficulty swallowing, hematemesis, melena, poor appetite, poor fluid intake, rectal bleeding, rectal pain, others Genitourinary: denies: abnormal vagina bleeding, burning, dyspareunia, dysuria, flank pain, frequency, hematuria, incontinence, pain, , vagina discharge, urgency, others Neurological: denies: dizziness, fainting, headache, left sided numbness, left sided weakness, numbness, paresthesia, pre-existing deficit, right sided numbness, right sided weakness, seizure, speech problems, tingling, tremors, weakness, others Musculoskeletal: denies: back pain, gout, joint pain, joint swelling, muscle pain, muscle stiffness, neck pain, others Integumetry: denies: bruises, change in color, change in hair/nails, dryness, laceration, lesions, lumps, rash, wounds, others Allergic/Immunocompromised: denies: Difficulty Healing, Frequent Infections, Hives, Itching, others Hematologic/Lymphatic: denies: anemia, blood clots, easy bleeding, easy bruising, swollen glands, others Endocrine: denies: excessive hunger, excessive sweating, excessive thirst, excessive urination, flushing, intolerance to cold, intolerance to heat, unexplained weight gain, unexplained weight loss, others Psychiatric: denies: anxiety, bipolar disorder, depression, hopeless, panic disorder, schizophrenia, sleepless, suicidal, others All Other Systems: Reviewed and Negative Physical Exam General Appearance: Moderate Distress, Obese HEENT: Normal ENT Inspection, PERRL/EOMI Neck: Full Range of Motion, Non-Tender, Normal, Normal Inspection Respiratory: Chest Non-Tender, Lungs Clear, No Accessory Muscle Use, No Respiratory Distress, Normal Breath Sounds Cardiovascular: No Edema, No JVD, No Murmur, No Gallop, Normal Peripheral Pulses, Regular Rate/Rhythm Breast Exam: Deferred Gastrointestinal: Diffuse, Distended, LLQ, No Organomegaly, No Pulsatile Mass, Tenderness, Other (Morbid obesity) Genitalia: Deferred Pelvic: Deferred Rectal: Deferred Extremities: Decreased range of motion, Inflammation, Leg edema, Pedal edema, Slow capillary refill, Swelling, Tender, Other (Venous stasis dermatitis and fluid retention to both legs) Neurologic: Other (Patient with cerebral palsy) Cerebellar Function: NOT DONE Reflexes: NOT DONE Skin: Dry, Mottled, Warm Peripheral Pulses: 1+ carotid (R), 1+ carotid (L) Lymphatic: No Adenopathy Was a procedure done? Was a procedure done?: No GI differential Dx Differential Diagnosis: Diverticular disease, Gastritis/PUD, Gastroenteritis, Pancreatitis, UTI, Dehydration, Diabetes/ DKA, Drug toxicity, Electrolyte Imbalance, Food Poisoning, Bacterial, Viral, Renal Failure, Anemia X-Ray, Labs, Meds, VS Vital Signs Date Time Temp Pulse Resp B/P (MAP) Pulse Ox O2 Delivery O2 Flow Rate FiO2 06/15/24 12:13 100 18 115/72 (86) 90 06/15/24 12:00 102 06/15/24 10:10 105 18 132/64 06/15/24 10:09 105 17 132/64 (86) 97 06/15/24 09:26 108 16 131/68 06/15/24 08:00 106 06/15/24 08:00 98.0 106 18 141/84 (103) 91 98.0 06/15/24 07:30 104 19 95 Nasal Cannula* 3 32 06/15/24 05:55 97.8 104 18 160/80 (106) 99 97.8 06/15/24 05:50 100 18 97 Nasal Cannula* 3 32 06/15/24 05:40 97 06/15/24 05:24 97.8 90 24 146/99 (115) 100 97.8 Lab Test 06/15/24 06:48 06/15/24 06:35 06/15/24 05:45 Range/Units Sodium Level 139 136-145 mmol/L Potassium Level 3.3 L 3.5-5.1 mmol/L Chloride Level 100 98-107 mmol/L Carbon Dioxide Level 29 20-31 mmol/L Anion Gap 10 5-15 Blood Urea Nitrogen 8 L 9-23 mg/dL Creatinine 0.69 0.550-1.02 mg/dL Glomerular Filtration Rate Calc 95 >90 mL/min BUN/Creatinine Ratio 11.6 10.0-20.0 Serum Glucose 156 H 74-106 mg/dL Calcium Level 9.5 8.7-10.4 mg/dL Magnesium Level 2.0 1.6-2.6 mg/dL Total Bilirubin 0.4 0.2-1.0 mg/dL Aspartate Amino Transferase (AST) 20 13-40 U/L Alanine Aminotransferase (ALT) 14 7-40 U/L Alkaline Phosphatase 117 H 46-116 U/L Total Protein 7.7 5.7-8.2 g/dL Albumin 4.3 3.2-4.8 g/dL Lipase 27 12-53 U/L Urine Color Light-brown Yellow Urine Clarity Ex.turbid Clear Urine pH 8.0 5.0-9.0 Urine Specific [place] 1.022 1.001-1.035 Urine Protein 1+ H Negative Urine Ketones Trace Negative Urine Blood 3+ H Negative /uL Urine Nitrite 1+ H Negative Urine Bilirubin Negative Negative Urine Urobilinogen Normal Negative mg/dL Urine Leukocyte Esterase 3+ Negative /uL Urine RBC 393 0 - 4 /hpf Urine WBC Clumps Present None Seen /hpf Urine Microscopic WBC 210 H 0-5 /HPF Urine Squamous Epithelial Cells Mod <5 /hpf Urine Bacteria Few H None Seen /hpf Urine Mucus Few None Seen Urine Glucose Normal Normal mg/dL White Blood Count 13.4 H 4.4-10.8 10^3/uL Red Blood Count 4.68 4.0-5.20 10^6/uL Hemoglobin 12.7 12.2-16.2 g/dL Hematocrit 38.5 36.0-46.0 % Mean Corpuscular Volume 82.2 80.0-100.0 fL Mean Corpuscular Hemoglobin 27.2 L 28.0-32.0 pg Mean Corpuscular Hemoglobin Concent 33.1 32.0-36.0 g/dL Red Cell Distribution Width 17.0 H 11.8-14.3 % Platelet Count 228 140-450 10^3/uL Mean Platelet Volume 7.9 6.9-10.8 fL Neutrophils (%) (Auto) 85.1 H 37.0-80.0 % Lymphocytes (%) (Auto) 8.3 L 10.0-50.0 % Monocytes (%) (Auto) 5.9 0.0-12.0 % Eosinophils (%) (Auto) 0.4 0.0-7.0 % Basophils (%) (Auto) 0.3 0.0-2.0 % Neutrophils # (Auto) 11.4 H 1.6-8.6 10 ^3/uL Lymphocytes # (Auto) 1.1 0.4-5.4 10 ^3/uL Monocytes # (Auto) 0.8 0-1.3 10 ^3/uL Eosinophils # (Auto) 0.1 0-0.8 10 ^3/uL Basophils # (Auto) 0 0-0.2 10 ^3/uL Nucleated Red Blood Cells 0.0 % Current Medications Medications (Trade) Dose Ordered Sig/Mahad Route Start Time Stop Time Status Last Admin Sodium Chloride 1,000 ml @ 150 mls/hr Q6H40M ONCE IV 06/15/24 07:00 06/15/24 13:39 06/15/24 07:33 Ketorolac Tromethamine (Toradol Injection) 30 mg ONCE ONCE IV 06/15/24 07:00 06/15/24 07:04 DC 06/15/24 07:33 Metoclopramide HCl (Reglan Injection) 10 mg ONCE ONCE IV 06/15/24 07:00 06/15/24 07:04 DC 06/15/24 07:33 Hydromorphone HCl (Dilaudid Injection) 1 mg ONCE ONCE IV 06/15/24 09:00 06/15/24 09:01 DC 06/15/24 09:26 [place] [id number] Ph: [phone] DIAGNOSTIC IMAGING Diagnostic Imaging Report : [id number] Signed PATIENT: GAGE NELSONCCT: [id number] UNIT: [id number] : 1955 LOC: ER ROOM / BED: / AGE / SEX: 69 / F ADM STATUS: REG ER SERVICE 9 ORDERING PHYSICIAN: EVARISTO WALSH MD PROCEDURE(s): CXRP - CHEST PORTABLE REASON: Acute abdominal pain left-sided ORDER NUMBER(s): [id number], ACCESSION NUMBER(s): [id number] CHEST RADIOGRAPH Indication: Acute abdominal pain left-sided Technique: Single frontal view of the chest was obtained COMPARISON: XY CHEST PORTABLE on DOS: 03/30/23, CHEST PORTABLE on DOS: 01/10/22, CXRP on DOS: 01/10/22 FINDINGS: Lines and Tubes: None Lungs: Increased interstitial prominence Pleura: No effusion. No pneumothorax. Cardiomediastinal contours: Cardiomegaly Bones: Unremarkable IMPRESSION: Possible mild pulmonary vascular congestion ATED BY: DOUG NELSON MD DICTATED DATE/TIME: 06/15/24743 SIGNED BY: DOUG NELSON MD SIGNED DATE/TIME: 06/15/24743 CC: [place] [id number] Ph: [phone] DIAGNOSTIC IMAGING Diagnostic Imaging Report : [id number] Signed PATIENT: GAGE NELSONCCT: [id number] UNIT: [id number] : 1955 LOC: ER ROOM / BED: / AGE / SEX: 69 / F ADM STATUS: REG ER SERVICE 9 ORDERING PHYSICIAN: EVARISTO WALSH MD PROCEDURE(s): ABPLIV - CT AB PEL WITH IV CON ONLY REASON: Acute abdominal pain diverticulitis ORDER NUMBER(s): [id number], ACCESSION NUMBER(s): [id number] Exam: CT CT AB PEL WITH IV CON ONLY History: Acute abdominal pain diverticulitis COMPARISON: None Technique: Multidetector spiral CT of the abdomen and pelvis was performed from lung bases to pubic symphysis. Intravenous contrast was administered during this examination. Portal venous imaging was obtained. Axial, coronal and sagittal multiplanar reformats were performed by the technologist on a separate workstation. Radiation Dose : Abdomen/Pelvis: CTDIvol 21 mGy, DLP 1161 mGy*cm. CONTRAST: Type of contrast: Omni 300 Contrast injected: 100 mL Findings: Lung Bases: Atelectasis and consolidation in the lung bases. Liver: Diffuse hepatic steatosis. Gallbladder and biliary Tree: Gallbladder is surgically absent. Spleen: Unremarkable Pancreas: The pancreas is normal in appearance without focal lesions or abnormal enhancement. Adrenal Glands: Unremarkable Kidneys: There is mild left hydronephrosis and hydroureter with perinephric stranding. There are calcifications along the course of the distal left ureter which are likely vascular. There are other punctate left renal calculi noted. No right hydronephrosis. Bladder: There is a calculus in the dependent bladder measuring up to 4 mm. Bowel: The stomach is grossly normal in appearance. Small bowel and colon are normal in caliber and distribution. Normal appendix is visualized in the right lower quadrant without findings of appendicitis. Sigmoid diverticulosis. Ascites: Absent Lymphadenopathy: Shotty retroperitoneal lymphadenopathy. Mildly prominent bilateral inguinal lymph nodes. Abdominal wall and Mesentery: Unremarkable. Vasculature: The visualized abdominal aorta is normal in size and caliber. Abdominal and pelvic vessels demonstrate normal enhancement. Pelvic Organs: Unremarkable Musculoskeletal: Grade 1 anterolisthesis of L5 on S1. Multilevel degenerative disease. Levoscoliosis. IMPRESSION: 1. Mild left hydronephrosis and hydroureter with associated perinephric stranding. No definite obstructing ureteral calculus identified. Calculus in the dependent bladder measuring up to 4 mm likely represents a recently passed calculus. Other nonobstructive left renal calculi noted. Urology evaluation is recommended. This could be further evaluated with CT urogram if clinically indicated. 2. Atelectasis and consolidation in the lung bases. Consider dedicated chest CT. 3. Diffuse hepatic steatosis. Sigmoid diverticulosis. No evidence of acute diverticulitis. Mildly prominent bilateral inguinal lymph nodes are nonspecific. Radiation optimization: All CT scans at this facility use at least one of these dose optimization techniques: Automated exposure control mA and/or kV adjustment per patient size (includes targeted exams where dose is matched to clinical indication) or iterative reconstruction. HS:Y ATED BY: GUANACO HOLBROOK MD DICTATED DATE/TIME: 06/15/24 110 SIGNED BY: GUANACO HOLBROOK MD SIGNED DATE/TIME: 06/15/241108 CC: X-Ray, Labs, Meds, VS Comment Course in the emergency department eventful patient came in complaining of diffuse abdominal pain mostly on the left side patient is on Eliquis she has history of cerebral palsy COPD diverticulitis vertigo had pulmonary embolism twice CBC 24880 with 85% neutrophils and normal H&H CMP shows a potassium of 3.3 with a sugar of 156 Urine shows 1+ protein 3+ blood 1+ nitrites 3+ leukocyte esterase white BC clumps and bacteria Lipase 27 Magnesium 2.0 Chest x-ray shows pulmonary vascular congestion with cardiomegaly CT abdomen and pelvis shows bibasilar consolidations left hydronephrosis and ureteral with a calculus 4 mm in the bladder diffuse hepatic steatosis and multilevel DJD Time of 1ST Reevaluation: 07:15 Reevaluation 1ST: Unchanged Reevaluation 2ND: Unchanged Patient Education/Counseling: Diagnosis, Treatment, Prognosis Family Education/Counseling: Diagnosis, Treatment, Prognosis, No Family Present Departure 1 Departure Time of Disposition: 13:21 Impression: Primary Impression: COPD with acute exacerbation Additional Impressions: Community acquired bilateral lower lobe pneumonia Pyelonephritis Hypokalemia Hydronephrosis concurrent with and due to calculi of kidney and ureter Calculus in bladder Hepatic steatosis Multilevel degenerative joint disease of spine Morbid obesity Disposition: 09 ADMITTED INPATIENT Admit to: Tele Condition: Serious Critical Care Note Critical Care Time?: No Stability Stability form required: Yes Unstable for transfer: Telemetry monitoring (Telemetry monitoring required), Requires medication (Requires Med for stabilization) Heart Score Heart Score: Heart Score Response (Comments) Value History Slightly Suspicious 0 EKG Normal 0 Age >65 2 Risk Factors >3 or Hx ASHD 2 Troponin N/A 0 Total 4 I personally scribed for EVARISTO WALSH MD ([email or web address]) on 06/15/24 at 07:22. Electronically submitted by Elizabeth Luo ([email or web address]). I personally scribed for EVARISTO WALSH MD ([email or web address]) on 06/15/24 at 07:49. Electronically submitted by Elizabeth Luo ([email or web address]). I personally scribed for EVARISTO WALSH MD ([email or web address]) on 06/15/24 at 11:34. Electronically submitted by Elizabeth Luo ([email or web address]). EVARISTO WALSH MD Jun 15, 2024 07:22
[2024-06-15 07:30] VITALS: PULSE 104; RESP 19; O2SAT 95
[2024-06-15] MEDS: SODIUM CHLORIDE 0.9% 1,000 ML IV ONE (07:33)
[2024-06-15] MEDS: KETOROLAC TROMETH 30 MG/ML 1ML VIAL IV ONE (07:33)
[2024-06-15] MEDS: METOCLOPRAMIDE HCL 5MG/ml INJ 2ml VIAL IV ONE (07:33)
[2024-06-15 07:35] LABS: Alanine Aminotransferase 14 U/L (7-40); Albumin 4.3 g/dL (3.2-4.8); Anion Gap 10 (5-15); Aspartate Aminotransferase 20 U/L (13-40); BUN/Creatinine Ratio 11.6 (10.0-20.0); Bilirubin, Total 0.4 mg/dL (0.2-1.0); Calcium 9.5 mg/dL (8.7-10.4); Carbon Dioxide 29 mmol/L (20-31); Chloride 100 mmol/L (98-107); Sodium 139 mmol/L (136-145); Total Protein 7.7 g/dL (5.7-8.2)
[2024-06-15 07:37] LABS: Alkaline Phosphatase 117 U/L (46-116); Blood Urea Nitrogen 8 mg/dL (9-23); Glucose 156 mg/dL (74-106); Potassium 3.3 mmol/L (3.5-5.1)
[2024-06-15 07:37] LABS: Urine Bacteria FEW /hpf (None Seen); Urine Blood 3+ /uL (Negative); Urine Clarity Ex.Turbid (Clear); Urine Color Light-Brown (Yellow); Urine Mucus FEW (None Seen); Urine Protein, UAD 1+ (Negative); Urine Specific Gravity 1.022 (1.001-1.035); Urine Squamous Epithelial Cell MOD /hpf (<5); Urine Urobilinogen Normal (Negative); Urine WBC 210 /HPF (0-5); Urine WBC Clumps PRESENT /hpf (None Seen)
--- NOTE | 2024-06-15 07:46 | DVH ---
CHEST RADIOGRAPH Indication: Acute abdominal pain left-sided Technique: Single frontal view of the chest was obtained COMPARISON: XY CHEST PORTABLE on DOS: 03/30/23, CHEST PORTABLE on DOS: 01/10/22, CXRP on DOS: 01/10/22 FINDINGS: Lines and Tubes: None Lungs: Increased interstitial prominence Pleura: No effusion. No pneumothorax. Cardiomediastinal contours: Cardiomegaly Bones: Unremarkable IMPRESSION: Possible mild pulmonary vascular congestion
[2024-06-15] MEDS: IOHEXOL 300 MG/ML 100ML BOTTLE IJ ONE ×2 (08:16→10:07)
[2024-06-15] MEDS: HYDROMORPHONE HCL 1 MG/ML INJ IV ONE (09:26)
--- NOTE | 2024-06-15 11:11 | DVH ---
Exam: CT CT AB PEL WITH IV CON ONLY History: Acute abdominal pain diverticulitis COMPARISON: None Technique: Multidetector spiral CT of the abdomen and pelvis was performed from lung bases to pubic symphysis. Intravenous contrast was administered during this examination. Portal venous imaging was obtained. Axial, coronal and sagittal multiplanar reformats were performed by the technologist on a separate workstation. Radiation Dose : Abdomen/Pelvis: CTDIvol 21 mGy, DLP 1161 mGy*cm. CONTRAST: Type of contrast: Omni 300 Contrast injected: 100 mL Findings: Lung Bases: Atelectasis and consolidation in the lung bases. Liver: Diffuse hepatic steatosis. Gallbladder and biliary Tree: Gallbladder is surgically absent. Spleen: Unremarkable Pancreas: The pancreas is normal in appearance without focal lesions or abnormal enhancement. Adrenal Glands: Unremarkable Kidneys: There is mild left hydronephrosis and hydroureter with perinephric stranding. There are ca lcifications along the course of the distal left ureter which are likely vascular. There are other pu nctate left renal calculi noted. No right hydronephrosis. Bladder: There is a calculus in the dependent bladder measuring up to 4 mm. Bowel: The stomach is grossly normal in appearance. Small bowel and colon are normal in caliber and d istribution. Normal appendix is visualized in the right lower quadrant without findings of appendicit is. Sigmoid diverticulosis. Ascites: Absent Lymphadenopathy: Shotty retroperitoneal lymphadenopathy. Mildly prominent bilateral inguinal lymph n odes. Abdominal wall and Mesentery: Unremarkable. Vasculature: The visualized abdominal aorta is normal in size and caliber. Abdominal and pelvic vess els demonstrate normal enhancement. Pelvic Organs: Unremarkable Musculoskeletal: Grade 1 anterolisthesis of L5 on S1. Multilevel degenerative disease. Levoscoliosi s. IMPRESSION: 1. Mild left hydronephrosis and hydroureter with associated perinephric stranding. No definite obstr ucting ureteral calculus identified. Calculus in the dependent bladder measuring up to 4 mm likely r epresents a recently passed calculus. Other nonobstructive left renal calculi noted. Urology evaluat ion is recommended. This could be further evaluated with CT urogram if clinically indicated. 2. Atelectasis and consolidation in the lung bases. Consider dedicated chest CT. 3. Diffuse hepatic steatosis. Sigmoid diverticulosis. No evidence of acute diverticulitis. Mildly pro minent bilateral inguinal lymph nodes are nonspecific. Radiation optimization: All CT scans at this facility use at least one of these dose optimization stephanie hniques: Automated exposure control mA and/or kV adjustment per patient size (includes targeted exams where dose is matched to clinical indication) or iterative reconstruction. HS:Y
[2024-06-15] MEDS: POTASSIUM EFFERVESENT TAB 25 MEQ PO ONE (13:58)
[2024-06-15] MEDS: cefTRIAXone 1GM/50ML D5W 50 ML IV ONE (13:59)
[2024-06-15] MEDS ORDERED: MORPHINE SULFATE INJ 2 MG/ml SYRG IV PRN ×2 (17:00)
[2024-06-15] MEDS ORDERED: METOPROLOL TARTRATE 1MG/1ML-5ML VIAL IV PRN (17:00)
[2024-06-15] MEDS ORDERED: ONDANSETRON HCL 4 MG/2 ML VIAL IV PRN (17:00)
[2024-06-15] MEDS ORDERED: NITROGLYCERIN 0.4 MG SL TAB SL PRN (17:00)
[2024-06-15] MEDS: SODIUM CHLORIDE 0.9% 1,000 ML IV SCH (17:34)
[2024-06-15] MEDS: levoFLOXacin 500MG 100 ML IV SCH (17:34)
[2024-06-15 18:25] LABS: Lactic Acid w/Reflex 2.3 mmol/L (0.4-2.0)
[2024-06-15 19:00] VITALS: BP 116/70; PULSE 131; RESP 22; TEMP 98.5; O2SAT 92
[2024-06-15 19:53] VITALS: PULSE 136; RESP 16; O2SAT 92
[2024-06-15 20:00] VITALS: PULSE 139
[2024-06-15 20:53] VITALS: BP 110/61; PULSE 124; RESP 18; TEMP 98.3; O2SAT 92
[2024-06-15] MEDS: APIXABAN 5 MG TAB PO SCH (21:17)
[2024-06-15] MEDS: MONTELUKAST SODIUM 10 MG TAB PO SCH (21:18)
[2024-06-15] MEDS: FAMOTIDINE 20 MG TAB PO SCH (21:18)
[2024-06-15] MEDS: metroNIDAZOLE 500MG/100ML 100 ML IV SCH (21:46)
[2024-06-15] MEDS: HYDROcodone-ACET 5/325MG TAB PO PRN (22:03)
[2024-06-16] VITALS (8 sets, daily range): BP systolic 114–150; BP diastolic 63–78; PULSE 69–129; RESP 14–18; TEMP 97.5–98.4; O2SAT 91–98
--- NOTE | 2024-06-16 02:58 | DVHHP2 ---
EVGENY TOSCANO SKILL TRAINING PROGRAM COORDINATOR 06/16/24 0258: History of Present Illness Reason for Visit: Abdominal pain History of Present Illness 69-year-old female presents with complaints of abdominal pain x1 day. Patient endorses nausea. No additional associated complaints. At this time patient denies fevers, chills, shortness of breath, chest pain, palpitations, leg swelling, hematemesis, hematochezia, melena. Cardiovascular: CHF Pulmonary: Asthma, COPD Smoke: No ALCOHOL: none Lives: Alone Review of Systems Constitutional: No: Fever, Chills, Sweats, Weakness, Malaise, Other Eyes: No: Pain, Vision change, Conjunctivae inflammation, Eyelid inflammation, Other, Redness ENT: No: Ear pain, Ear discharge, Nose pain, Nose discharge, Nose congestion, Mouth pain, Mouth swelling, Throat pain, Throat swelling, Other Respiratory: No: Cough, Dry, Shortness of breath, SOB with excertion, Wheezing, Hemoptysis, Pleuritic Pain, Sputum, Wheezing, Other Cardiovascular: No: Chest Pain, Palpitations, Orthopnea, Paroxysmal Noc. Dyspnea, Edema, Lt Headedness, Other Gastrointestinal: Nausea, Vomiting, Abdominal Pain; No: Diarrhea, Constipation, Melena, Hematochezia, Other Genitourinary: No Dysuria, No Frequency, No Incontinence, No Hematuria, No Retention, No Other Musculoskeletal: No: other, neck pain, shoulder pain, arm pain, back pain, hand pain, leg pain, foot pain Skin: No: Rash, Lesions, Jaundice, Bruising, Other Neurological: No: Weakness, Numbness, Incoordination, Change in speech, Confusion, Seizures, Other Allergies: Coded Allergies: Cephalexin (Verified Allergy, Unknown, 01/11/22) Doxycycline (Verified Allergy, Unknown, 01/11/22) Lisinopril (Verified Allergy, Unknown, 10/06/23) Medications Current Medications Medications Dose Ordered Sig/Mahad Route Start Time Stop Time Status Last Admin Dose Admin Apixaban 5 mg BID PO 06/15/24 22:00 06/15/24 21:17 5 MG Montelukast Sodium 10 mg HS PO 06/15/24 22:00 06/15/24 21:18 10 MG Pantoprazole Sodium 40 mg DAILY PO 06/16/24 10:00 Nitroglycerin 0.4 mg Q5MINP PRN SL 06/15/24 17:00 Morphine Sulfate 2 mg Q30M PRN IV 06/15/24 17:00 Sodium Chloride 1,000 ml @ 100 mls/hr Q10H IV 06/15/24 17:00 06/15/24 17:34 100 MLS/HR Levofloxacin/ Dextrose 100 ml @ 100 mls/hr DAILY IV 06/15/24 17:00 06/15/24 17:34 100 MLS/HR Metronidazole 100 ml @ 100 mls/hr Q8HR IV 06/15/24 22:00 06/15/24 21:46 100 MLS/HR Ondansetron HCl 4 mg Q4HPRN PRN IV 06/15/24 17:00 Morphine Sulfate 2 mg Q4HPRN PRN IV 06/15/24 17:00 Acetaminophen/ Hydrocodone Bitart 1 tab Q4HPRN PRN PO 06/15/24 17:00 06/15/24 22:03 1 TAB Famotidine 20 mg Q12HR PO 06/15/24 22:00 06/15/24 21:18 20 MG Metoprolol Tartrate 1.25 mg Q6HPRN PRN IV 06/15/24 17:00 Exam Vital Signs Vital Signs Date Time Temp Pulse Resp B/P (MAP) Pulse Ox O2 Delivery O2 Flow Rate FiO2 06/16/24 01:00 98.4 118 18 140/69 (92) 98 98.4 06/15/24 20:00 Nasal Cannula* 3 32 General Appearance: Alert, Oriented X3, Cooperative HEENT: Atraumatic, PERRLA, EOMI Respiratory: Clear to auscultation, Normal air movement Cardiovascular: Regular rate, Normal S1, Normal S2 Abdominal: Normal bowel sounds, Soft, No tenderness Extremities: No clubbing, No cyanosis, No edema Skin: No rashes, No breakdown Neuro: Normal speech Psych/Mental Status: Mental status NL, Mood NL Labs/Xrays Labs Test 06/15/24 19:40 06/15/24 06:48 06/15/24 06:35 06/15/24 05:45 Range/Units Lactic Acid Level 1.9 0.4-2.0 mmol/L Sodium Level 139 136-145 mmol/L Potassium Level 3.3 L 3.5-5.1 mmol/L Chloride Level 100 98-107 mmol/L Carbon Dioxide Level 29 20-31 mmol/L Anion Gap 10 5-15 Blood Urea Nitrogen 8 L 9-23 mg/dL Creatinine 0.69 0.550-1.02 mg/dL Glomerular Filtration Rate Calc 95 >90 mL/min BUN/Creatinine Ratio 11.6 10.0-20.0 Serum Glucose 156 H 74-106 mg/dL Calcium Level 9.5 8.7-10.4 mg/dL Magnesium Level 2.0 1.6-2.6 mg/dL Total Bilirubin 0.4 0.2-1.0 mg/dL Aspartate Amino Transferase (AST) 20 13-40 U/L Alanine Aminotransferase (ALT) 14 7-40 U/L Alkaline Phosphatase 117 H 46-116 U/L Total Protein 7.7 5.7-8.2 g/dL Albumin 4.3 3.2-4.8 g/dL Lipase 27 12-53 U/L Urine Color Light-brown Yellow Urine Clarity Ex.turbid Clear Urine pH 8.0 5.0-9.0 Urine Specific [place] 1.022 1.001-1.035 Urine Protein 1+ H Negative Urine Ketones Trace Negative Urine Blood 3+ H Negative /uL Urine Nitrite 1+ H Negative Urine Bilirubin Negative Negative Urine Urobilinogen Normal Negative mg/dL Urine Leukocyte Esterase 3+ Negative /uL Urine RBC 393 0 - 4 /hpf Urine WBC Clumps Present None Seen /hpf Urine Microscopic WBC 210 H 0-5 /HPF Urine Squamous Epithelial Cells Mod <5 /hpf Urine Bacteria Few H None Seen /hpf Urine Mucus Few None Seen Urine Glucose Normal Normal mg/dL White Blood Count 13.4 H 4.4-10.8 10^3/uL Red Blood Count 4.68 4.0-5.20 10^6/uL Hemoglobin 12.7 12.2-16.2 g/dL Hematocrit 38.5 36.0-46.0 % Mean Corpuscular Volume 82.2 80.0-100.0 fL Mean Corpuscular Hemoglobin 27.2 L 28.0-32.0 pg Mean Corpuscular Hemoglobin Concent 33.1 32.0-36.0 g/dL Red Cell Distribution Width 17.0 H 11.8-14.3 % Platelet Count 228 140-450 10^3/uL Mean Platelet Volume 7.9 6.9-10.8 fL Neutrophils (%) (Auto) 85.1 H 37.0-80.0 % Lymphocytes (%) (Auto) 8.3 L 10.0-50.0 % Monocytes (%) (Auto) 5.9 0.0-12.0 % Eosinophils (%) (Auto) 0.4 0.0-7.0 % Basophils (%) (Auto) 0.3 0.0-2.0 % Neutrophils # (Auto) 11.4 H 1.6-8.6 10 ^3/uL Lymphocytes # (Auto) 1.1 0.4-5.4 10 ^3/uL Monocytes # (Auto) 0.8 0-1.3 10 ^3/uL Eosinophils # (Auto) 0.1 0-0.8 10 ^3/uL Basophils # (Auto) 0 0-0.2 10 ^3/uL Nucleated Red Blood Cells 0.0 % Assessment/Plan Assessment/Plan Abdominal pain UTI Plan Admit telemetry IVF IV ABX Monitor BMP, CBC, LA Continue home medications GI ppx protonix / DVT ppx SCD Plan discussed with: Patient Date of Service: June 16, 2024 Billing Provider: DANIELITO SHEPARD MD Common Visit Codes: NOT BILLABLE DANIELITO SHEPARD MD 06/16/24 1522: Review of Systems Allergies: Coded Allergies: Cephalexin (Verified Allergy, Unknown, 01/11/22) Doxycycline (Verified Allergy, Unknown, 01/11/22) Lisinopril (Verified Allergy, Unknown, 10/06/23) Assessment/Plan Assessment/Plan Patient's chart is reviewed and discussed with the nurse practitioner. I agree with the nurse practitioner's evaluation, documentation, assessment and care plan as outlined. EVGENY TOSCANO NP June 16, 2024 02:58 DANIELITO SHEPARD MD June 16, 2024 15:22
[2024-06-16 06:59] LABS: Basophils # (auto) 0 10 ^3/uL (0-0.2); Basophils % (auto) 0.3 % (0.0-2.0); Eosinophils # (auto) 0.1 10 ^3/uL (0-0.8); Eosinophils % (auto) 1.5 % (0.0-7.0); Hematocrit 37.4 % (36.0-46.0); Hemoglobin 12.1 g/dL (12.2-16.2); Lymphocytes # (auto) 1.5 10 ^3/uL (0.4-5.4); Lymphocytes % (auto) 15.9 % (10.0-50.0); Mean Corpuscular Hemoglobin 26.7 pg (28.0-32.0); Mean Corpuscular Hgb Conc. 32.4 g/dL (32.0-36.0); Mean Corpuscular Volume 82.5 fL (80.0-100.0); Neutrophils # (auto) 6.9 10 ^3/uL (1.6-8.6); Neutrophils % (auto) 72.3 % (37.0-80.0); Platelet Count (auto) 219 10^3/uL (140-450); Red Blood Cells 4.54 10^6/uL (4.0-5.20); White Blood Cell 9.6 10^3/uL (4.4-10.8)
[2024-06-16 07:15] LABS: Alanine Aminotransferase 14 U/L (7-40); Alkaline Phosphatase 107 U/L (46-116); Anion Gap 7 (5-15); Aspartate Aminotransferase 18 U/L (13-40); BUN/Creatinine Ratio 10.4 (10.0-20.0); Bilirubin, Total 0.6 mg/dL (0.2-1.0); Calcium 9.2 mg/dL (8.7-10.4); Chloride 101 mmol/L (98-107); Sodium 140 mmol/L (136-145); Total Protein 7.1 g/dL (5.7-8.2)
[2024-06-16 07:16] LABS: Blood Urea Nitrogen 7 mg/dL (9-23); Carbon Dioxide 32 mmol/L (20-31); Glucose 113 mg/dL (74-106); Potassium 3.5 mmol/L (3.5-5.1)
[2024-06-16] MEDS: PANTOPRAZOLE 40 MG TAB PO SCH (10:54)
[2024-06-16] MEDS: SODIUM CHLORIDE 0.9% 1,000 ML IV SCH (15:30)
[2024-06-17] VITALS (7 sets, daily range): BP systolic 116–139; BP diastolic 69–80; PULSE 83–107; RESP 16–20; TEMP 97.8–98.7; O2SAT 94–98
[2024-06-17 06:13] LABS: Basophils # (auto) 0.1 10 ^3/uL (0-0.2); Basophils % (auto) 0.8 % (0.0-2.0); Eosinophils # (auto) 0.1 10 ^3/uL (0-0.8); Eosinophils % (auto) 1.5 % (0.0-7.0); Hematocrit 36.8 % (36.0-46.0); Hemoglobin 12.1 g/dL (12.2-16.2); Lymphocytes # (auto) 1.4 10 ^3/uL (0.4-5.4); Lymphocytes % (auto) 17.2 % (10.0-50.0); Mean Corpuscular Hemoglobin 27.2 pg (28.0-32.0); Mean Corpuscular Hgb Conc. 32.8 g/dL (32.0-36.0); Mean Corpuscular Volume 82.9 fL (80.0-100.0); Monocytes # (auto) 0.9 10 ^3/uL (0-1.3); Monocytes % (auto) 11.2 % (0.0-12.0); Neutrophils # (auto) 5.7 10 ^3/uL (1.6-8.6); Neutrophils % (auto) 69.3 % (37.0-80.0); Platelet Count (auto) 221 10^3/uL (140-450); Red Blood Cells 4.44 10^6/uL (4.0-5.20); Red Cell Distribution Width 17.1 % (11.8-14.3); White Blood Cell 8.3 10^3/uL (4.4-10.8)
[2024-06-17 06:31] LABS: Chloride 105 mmol/L (98-107); Sodium 140 mmol/L (136-145)
[2024-06-17 06:32] LABS: Anion Gap 8 (5-15); Calcium 9.1 mg/dL (8.7-10.4); Carbon Dioxide 27 mmol/L (20-31)
[2024-06-17 06:37] LABS: Glucose 100 mg/dL (74-106)
[2024-06-17 06:40] LABS: BUN/Creatinine Ratio 9.1 (10.0-20.0); Blood Urea Nitrogen < 5 mg/dL (9-23); Potassium 3.3 mmol/L (3.5-5.1)
[2024-06-17] MEDS ORDERED: BACDST PO (12:46)
--- NOTE | 2024-06-17 12:51 | DVHDS2 ---
Discharge Summary Date of Admission Jun 15, 2024 at 16:50 Date of Discharge: June 17, 2024 Labs/Diagnostic Data: Laboratory Results Test 06/17/24 05:23 06/16/24 06:16 06/15/24 06:48 06/15/24 06:35 White Blood Count 8.3 10^3/uL (4.4-10.8) Red Blood Count 4.44 10^6/uL (4.0-5.20) Hemoglobin 12.1 g/dL (12.2-16.2) Hematocrit 36.8 % (36.0-46.0) Mean Corpuscular Volume 82.9 fL (80.0-100.0) Mean Corpuscular Hemoglobin 27.2 pg (28.0-32.0) Mean Corpuscular Hemoglobin Concent 32.8 g/dL (32.0-36.0) Red Cell Distribution Width 17.1 % (11.8-14.3) Platelet Count 221 10^3/uL (140-450) Mean Platelet Volume 7.6 fL (6.9-10.8) Neutrophils (%) (Auto) 69.3 % (37.0-80.0) Lymphocytes (%) (Auto) 17.2 % (10.0-50.0) Monocytes (%) (Auto) 11.2 % (0.0-12.0) Eosinophils (%) (Auto) 1.5 % (0.0-7.0) Basophils (%) (Auto) 0.8 % (0.0-2.0) Neutrophils # (Auto) 5.7 10 ^3/uL (1.6-8.6) Lymphocytes # (Auto) 1.4 10 ^3/uL (0.4-5.4) Monocytes # (Auto) 0.9 10 ^3/uL (0-1.3) Eosinophils # (Auto) 0.1 10 ^3/uL (0-0.8) Basophils # (Auto) 0.1 10 ^3/uL (0-0.2) Nucleated Red Blood Cells 0.0 % Sodium Level 140 mmol/L (136-145) Potassium Level 3.3 mmol/L (3.5-5.1) Chloride Level 105 mmol/L (98-107) Carbon Dioxide Level 27 mmol/L (20-31) Anion Gap 8 (5-15) Blood Urea Nitrogen < 5 mg/dL (9-23) Creatinine 0.55 mg/dL (0.550-1.02) Glomerular Filtration Rate Calc 100 mL/min (>90) BUN/Creatinine Ratio 9.1 (10.0-20.0) Serum Glucose 100 mg/dL (74-106) Calcium Level 9.1 mg/dL (8.7-10.4) Lactic Acid Level 1.0 mmol/L (0.4-2.0) Total Bilirubin 0.6 mg/dL (0.2-1.0) Aspartate Amino Transferase (AST) 18 U/L (13-40) Alanine Aminotransferase (ALT) 14 U/L (7-40) Alkaline Phosphatase 107 U/L (46-116) Total Protein 7.1 g/dL (5.7-8.2) Albumin 4.0 g/dL (3.2-4.8) Magnesium Level 2.0 mg/dL (1.6-2.6) Lipase 27 U/L (12-53) Urine Color Light-brown (Yellow) Urine Clarity Ex.turbid (Clear) Urine pH 8.0 (5.0-9.0) Urine Specific [place] 1.022 (1.001-1.035) Urine Protein 1+ (Negative) Urine Ketones Trace (Negative) Urine Blood 3+ /uL (Negative) Urine Nitrite 1+ (Negative) Urine Bilirubin Negative (Negative) Urine Urobilinogen Normal mg/dL (Negative) Urine Leukocyte Esterase 3+ /uL (Negative) Urine RBC 393 /hpf (0 - 4) Urine WBC Clumps Present /hpf (None Seen) Urine Microscopic WBC 210 /HPF (0-5) Urine Squamous Epithelial Cells Mod /hpf (<5) Urine Bacteria Few /hpf (None Seen) Urine Mucus Few (None Seen) Urine Glucose Normal mg/dL (Normal) Other Laboratory Tests 06/17/24 05:23 Brief Hx & Hospital Course: 69-year-old female presents with complaints of abdominal pain x1 day. Patient endorses nausea. No additional associated complaints. At this time patient denies fevers, chills, shortness of breath, chest pain, palpitations, leg swelling, hematemesis, hematochezia, melena. She is admitted and treated for her urinary tract infection with IV antibiotics. Patient received gentle hydration. Patient resumed on her home medications. Patient's white cell count has normalized. She was afebrile. She was feeling better abdominal pain has resolved. Tolerating diet. Appears to be back to baseline normal status. Therefore it is felt she could be safely discharged home. I have talked with the patient regarding her urinary tract infection, discharge diagnosis, treatment she received, discharge medications, discharge instructions and follow-up plan of care. She has verbalized understanding of these and agree with the care plan as outlined. Condition at Discharge: Stable Final Diagnosis/Problems List Acute urinary tract infection Secondary diagnosis Morbid obesity with a BMI 39 Chronic lower extremity wounds COPD, CHF Discharge Disposition: Home Discharge Instruct/Medications Diet: Consistent carbohydrate, Cardiac 2g Na,low cholest Activity: No Restrictions, As Tolerated Follow Up/Referral: Your primary care doctor next week and to have a follow up urine analysis done Medications: As prescribed and home medications New Medications: Sulfamethoxazole W/Trimethopri (Bactrim Ds Tablet) 1 Tab Tb 1 TAB PO BID, #10 TAB Continued Medications: Apixaban Base (Eliquis) 5 Mg Tab 5 MG PO BID, TAB Hydrocodone-Acetaminophen (Hydrocodone Bitartrate/AC 10-325 mg) 1 Tab Tab 1 TAB PO Q8HP PRN, #15 TAB Montelukast Sodium (Montelukast Sodium) 10 Mg Tab 10 MG OR, TAB Ondansetron Odt 4MG Tab (Zofran Po) 4 Mg Tb 4 MG PO Q8HP PRN for 7 Days, #21 TAB ODT TAB-DISSOLVE IN MOUTH, THEN SWALLOW Pantoprazole Sodium Sesquihydr (Protonix) 40 Mg Tab 40 MG PO DAILY, #30 TAB Promethazine Hcl (Promethazine Hcl) 25 Mg Tab 5 MG OR, TAB Discontinued Medications: Ciprofloxacin Hcl (Cipro) 500 Mg Tab 1 TAB PO BID, #14 TAB Discharge Statement: "Patient was advised to return to the ER or call 911 if any headaches, dizziness, shortness of breath, chest pain, abdominal pain, bleeding, fevers, or worsening of medical condition. Patient was counseled about treatment plan, medications, possible side effects, patientverbalized understanding. All questions were answered to the best of my ability. This discharge took greater then 30 minutes in planning, reviewing documentation, counseling the patient, and discussing with other team members." ASSESSMENT ASSESSMENT Assessment Acute urinary tract infection Secondary diagnosis Morbid obesity with a BMI 39 Chronic lower extremity wounds COPD, CHF DANIELITO SHEPARD MD June 17, 2024 12:51
== END 2024-06-17 16:52 | disposition home health service (06) | DRG 689 ==
LOC: EDUNIT# 05:16 → ER 05:16 → EDBD 05:16 → OVERFLOW 16:50 → TELE-WESTW 18:43
PROVIDERS: ADMIT Hospitalist; ATTEND Hospitalist
DX: N13.6 Pyonephrosis (principal); J18.9 Pneumonia, unspecified organism; J44.0 Chronic obstructive pulmonary disease with (acute) lower respiratory infection; J44.1 Chronic obstructive pulmonary disease with (acute) exacerbation; E87.6 Hypokalemia; K76.0 Fatty (change of) liver, not elsewhere classified; M47.9 Spondylosis, unspecified; E66.01 Morbid (severe) obesity due to excess calories; I50.9 Heart failure, unspecified; I11.0 Hypertensive heart disease with heart failure; Z88.1 Allergy status to other antibiotic agents; Z88.8 Allergy status to other drugs, medicaments and biological substances; Z79.899 Other long term (current) drug therapy; Z79.2 Long term (current) use of antibiotics; Z79.891 Long term (current) use of opiate analgesic; Z79.1 Long term (current) use of non-steroidal anti-inflammatories (NSAID); Z79.01 Long term (current) use of anticoagulants; Z90.49 Acquired absence of other specified parts of digestive tract; Z98.891 History of uterine scar from previous surgery; Z68.39 Body mass index [BMI] 39.0-39.9, adult
CPT/HCPCS: 36415; 71045; 74177; 80048; 80053; 81001; 83605; 83690; 83735; 85025; 93005; G0378; J1885; J1956; J3490

== ENCOUNTER 2025-02-01 13:53 | Emergency (ER) | payer MEDICARE, OTHER ==
[~2025-02-01] VITALS: Ht 154.9 cm; Wt 100.0 kg
[~2025-02-01 13:53] MED LIST changes: +BACDST PO; -CIPR-173 PO
--- NOTE | 2025-02-01 14:58 | ED.PDOC ---
History of Present Illness HPI Comments 69F presents to the ER w/ prior Mhx of chronic UTI, Kidney Stones, Cancer, COPD, HTN, PE:SHx of Cholecystectomy, , Tonsillectomy and the c/c of urinary symptoms. Pt reports on on having had kidney stones in June of 2024 but recently been having right flank pain associated w/ frequency and poor urinary output. Denies any symptoms at this time. Patient denies any CP, SOB, dizziness, numbness, weakness, tingling, fever, chills, or recent fall. Chief Complaint: Urinary Time Seen by MD: 14:50 Primary Care Provider: DALIA Reviewed Notes: Nurses Notes, Medications, Allergies Allergies: Coded Allergies: Cephalexin (Verified Allergy, Unknown, 01/11/22) Doxycycline (Verified Allergy, Unknown, 01/11/22) Lisinopril (Verified Allergy, Unknown, 10/06/23) Home Meds Active Scripts Sulfamethoxazole W/Trimethopri (Bactrim Ds Tablet) 1 Tab Tb, 1 TAB PO BID, #10 TAB Prov:DANIELITO SHEPARD MD 06/17/24 Pantoprazole Sodium Sesquihydr (Protonix) 40 Mg Tab, 40 MG PO DAILY, #30 TAB Prov:GINI MCCORD MD 05/20/24 Ondansetron Odt 4MG Tab (ZOFRAN PO) 4 Mg Tb, 4 MG PO Q8HP PRN for 7 Days, #21 TAB ODT TAB-DISSOLVE IN MOUTH, THEN SWALLOW Prov:GINI MCCORD MD 05/20/24 Hydrocodone-Acetaminophen (Hydrocodone Bitartrate/AC 10-325 mg) 1 Tab Tab, 1 TAB PO Q8HP PRN, #15 TAB Prov:LORRAINE BENAVIDES [facility] 04/11/23 Reported Medications Montelukast Sodium (MONTELUKAST SODIUM) 10 Mg Tab, 10 MG OR, TAB 01/11/22 Apixaban Base (ELIQUIS) 5 Mg Tab, 5 MG PO BID, TAB 01/11/22 Promethazine Hcl (Promethazine Hcl) 25 Mg Tab, 5 MG OR, TAB 01/11/22 Information Source: Patient Mode of Arrival: Wheelchair Severity: Moderate Timing: Came on: Gradually Duration: Since onset Prehospital treatment: None Past Medical History PAST MEDICAL HISTORY: Cancer, COPD, HTN, Kidney Stones, PE, UTI'S Surgical History: Cholecystectomy, , 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 Family History Family History: Reviewed,noncontributory to illness, Unknown Social History Smoker: Non-Smoker Alcohol: Denies ETOH Use Drugs: Denies Drug Use Lives In: Home Constitutional: denies: chills, diaphoresis, fatigue, fever, malaise, sweats, weakness, others EENTM: denies: blurred vision, double vision, ear bleeding, ear discharge, ear drainage, ear pain, ear ringing, eye pain, eye redness, hearing loss, mouth pain, mouth swelling, nasal discharge, nose bleeding, nose congestion, nose pain, photophobia, tearing, throat pain, throat swelling, voice changes, others Respiratory: denies: cough, hemoptysis, orthopnea, SOB at rest, shortness of breath, SOB with excertion, stridor, wheezing, others Cardiovascular: denies: chest pain, dizzy spells, diaphoresis, Dyspnea on exertion, edema, irregular heart beat, left arm pain, lightheadedness, palpitations, PND, syncope, others Gastrointestinal: denies: abdomen distended, abdominal pain, blood streaked bowels, constipated, diarrhea, dysphagia, difficulty swallowing, hematemesis, melena, nausea, poor appetite, poor fluid intake, rectal bleeding, rectal pain, vomiting, others Genitourinary: reports: flank pain; denies: abnormal vagina bleeding, burning, dyspareunia, dysuria, frequency, hematuria, incontinence, pain, , vagina discharge, urgency, others Neurological: denies: dizziness, fainting, headache, left sided numbness, left sided weakness, numbness, paresthesia, pre-existing deficit, right sided num bness, right sided weakness, seizure, speech problems, tingling, tremors, weakness, others Musculoskeletal: denies: back pain, gout, joint pain, joint swelling, muscle pain, muscle stiffness, neck pain, others Integumetry: denies: bruises, change in color, change in hair/nails, dryness, laceration, lesions, lumps, rash, wounds, others Allergic/Immunocompromised: denies: Difficulty Healing, Frequent Infections, Hives, Itching, others Hematologic/Lymphatic: denies: anemia, blood clots, easy bleeding, easy bruising, swollen glands, others Endocrine: denies: excessive hunger, excessive sweating, excessive thirst, excessive urination, flushing, intolerance to cold, intolerance to heat, unexplained weight gain, unexplained weight loss, others Psychiatric: denies: anxiety, bipolar disorder, depression, hopeless, panic disorder, schizophrenia, sleepless, suicidal, others All Other Systems: Reviewed and Negative Physical Exam Exam Comments right lower back pain General Appearance: No Apparent Distress, Normal HEENT: Normal ENT Inspection, Pharynx Normal, TMs Normal Neck: Full Range of Motion, Non-Tender, Normal, Normal Inspection Respiratory: Chest Non-Tender, Lungs Clear, No Accessory Muscle Use, No Respiratory Distress, Normal Breath Sounds Cardiovascular: No Edema, No JVD, No Murmur, No Gallop, Normal Peripheral Pulses, Regular Rate/Rhythm Breast Exam: Deferred Gastrointestinal: No Organomegaly, Non Tender, No Pulsatile Mass, Normal Bowel Sounds, Soft Genitalia: Deferred Pelvic: Deferred Rectal: Deferred Extremities: No calf tenderness, Normal capillary refill, Normal inspection, Normal range of motion, Non-tender, No pedal edema Musculoskeletal : Apperance: Normal Neurologic: Alert, embedded systems engineer II-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 Was a procedure done?: No Differential Dx Considerations may include: Pyelonephritis, kidney stone, urinary tract infection X-Ray, Labs, Meds, VS Vital Signs Date Time Temp Pulse Resp B/P (MAP) Pulse Ox O2 Delivery O2 Flow Rate FiO2 02/01/25 16:00 97.8 101 20 136/89 (105) 94 97.8 02/01/25 13:55 98.0 107 15 131/71 96 98.0 Lab Test 02/01/25 15:35 02/01/25 14:45 Range/Units White Blood Count 12.5 H 4.4-10.8 10^3/uL Red Blood Count 5.07 4.0-5.20 10^6/uL Hemoglobin 13.5 12.2-16.2 g/dL Hematocrit 41.6 36.0-46.0 % Mean Corpuscular Volume 82.1 80.0-100.0 fL Mean Corpuscular Hemoglobin 26.7 L 28.0-32.0 pg Mean Corpuscular Hemoglobin Concent 32.5 32.0-36.0 g/dL Red Cell Distribution Width 16.5 H 11.8-14.3 % Platelet Count 290 140-450 10^3/uL Mean Platelet Volume 7.4 6.9-10.8 fL Neutrophils (%) (Auto) 73.7 37.0-80.0 % Lymphocytes (%) (Auto) 17.6 10.0-50.0 % Monocytes (%) (Auto) 6.9 0.0-12.0 % Eosinophils (%) (Auto) 1.3 0.0-7.0 % Basophils (%) (Auto) 0.5 0.0-2.0 % Neutrophils # (Auto) 9.3 H 1.6-8.6 10 ^3/uL Lymphocytes # (Auto) 2.2 0.4-5.4 10 ^3/uL Monocytes # (Auto) 0.9 0-1.3 10 ^3/uL Eosinophils # (Auto) 0.2 0-0.8 10 ^3/uL Basophils # (Auto) 0.1 0-0.2 10 ^3/uL Nucleated Red Blood Cells 0.0 % Sodium Level 140 136-145 mmol/L Potassium Level 3.4 L 3.5-5.1 mmol/L Chloride Level 98 98-107 mmol/L Carbon Dioxide Level 31 20-31 mmol/L Anion Gap 11 5-15 Blood Urea Nitrogen 10 9-23 mg/dL Creatinine 0.58 0.550-1.02 mg/dL Glomerular Filtration Rate Calc 99 >90 mL/min BUN/Creatinine Ratio 17.2 10.0-20.0 Serum Glucose 103 74-106 mg/dL Calcium Level 9.2 8.7-10.4 mg/dL Urine Color Light-yellow Yellow Urine Clarity Turbid H Clear Urine pH 5.5 5.0-9.0 Urine Specific [place] 1.012 1.001-1.035 Urine Protein Negative Negative Urine Ketones Negative Negative Urine Blood 2+ H Negative /uL Urine Nitrite Negative Negative Urine Bilirubin Negative Negative Urine Urobilinogen Normal Negative mg/dL Urine Leukocyte Esterase 3+ Negative /uL Urine RBC 18 0 - 4 /hpf Urine Microscopic WBC 94 H 0-5 /HPF Urine Squamous Epithelial Cells Few <5 /hpf Urine Bacteria None seen None Seen /hpf Urine Glucose Normal Normal mg/dL X-Ray, Labs, Meds, VS Comment Imaging was reviewed by this provider, there is no obvious pathological or acute disease process. Pending radiology review Labs were reviewed by this provider, positive leukocytes positive blood in the urine Vital signs reviewed by this provider, clinically stable Time of 1ST Reevaluation: 15:20 Reevaluation 1ST: Unchanged Patient Education/Counseling: Diagnosis, Treatment, Prognosis, Need For Follow Up (Follow up with PCP in the next 2-3 days. Return to emergency department if symptoms worsen.) Family Education/Counseling: No Family Present SEPSIS Sepsis Screen Date sepsis recognized/suspect: Feb 01, 2025 Time Sepsis recognized/suspect: 1356 Recent Procedure: No On Antibiotic Therapy: No Respiratory Rate >20: No Heart Rate >90: No Temp<36 C (96.8 F) or >38.3 C: No SBP <90 or MAP <65 mmHG: No New Acute Mental Status Change: No Is the patient on CPAP, BIPAP,: No Physician Orders Ct Ab Pel Wo Con-No Oral Or Iv (02/01/25 15:09) Ketorolac Injection (Toradol Injection) (02/01/25 16:45) Vital Signs Date Time Temp Pulse Resp B/P (MAP) Pulse Ox O2 Delivery O2 Flow Rate FiO2 02/01/25 16:00 97.8 101 20 136/89 (105) 94 97.8 02/01/25 13:55 98.0 107 15 131/71 96 98.0 Laboratory Tests Test 02/01/25 15:35 White Blood Count 12.5 10^3/uL (4.4-10.8) H Departure 1 Departure Time of Disposition: 16:36 Impression: Primary Impression: Urinary tract infection Qualified Codes: N30.01 - Acute cystitis with hematuria Disposition: HOME / SELF CARE / HOMELESS Condition: Stable e-Prescriptions Nitrofurantoin Monohydrate Mac (Macrobid) 100 Mg Cap 100 MG PO BID for 7 Days, #14 CAP Prov: KASIA RAYGOZA GOAL UMPIRE 02/01/25 Discharged With: Self Critical Care Note Critical Care Time?: No Stability Stability form required: No Heart Score Heart Score: Heart Score Response (Comments) Value History N/A 0 EKG N/A 0 Age N/A 0 Risk Factors N/A 0 Troponin N/A 0 Total 0 I personally scribed for KASIA RAYGOZA ([email or web address]) on 02/01/25 at 14:58. Electronically submitted by Antwan Jolley ([email or web address]). KASIA RAYGOZA Feb 01, 2025 14:58
[2025-02-01 15:54] LABS: Hematocrit 41.6 % (36.0-46.0); Hemoglobin 13.5 g/dL (12.2-16.2); Mean Corpuscular Hemoglobin 26.7 pg (28.0-32.0); Mean Corpuscular Volume 82.1 fL (80.0-100.0); Nucleated Red Blood Cells % 0.0 %
[2025-02-01 16:00] VITALS: BP 136/89; PULSE 101; RESP 20; TEMP 97.8; O2SAT 94
[2025-02-01 16:03] LABS: Urine Protein, UAD Negative (Negative)
[2025-02-01 16:03] LABS: Sodium 140 mmol/L (136-145)
[2025-02-01 16:04] LABS: Anion Gap 11 (5-15)
[2025-02-01 16:05] LABS: Calcium 9.2 mg/dL (8.7-10.4); Carbon Dioxide 31 mmol/L (20-31); Chloride 98 mmol/L (98-107); Potassium 3.4 mmol/L (3.5-5.1)
[2025-02-01 16:10] LABS: BUN/Creatinine Ratio 17.2 (10.0-20.0); Blood Urea Nitrogen 10 mg/dL (9-23); Glucose 103 mg/dL (74-106)
--- NOTE | 2025-02-01 16:22 | DVH ---
EXAM: CT CT AB PEL WO CON-NO ORAL OR IV HISTORY: flank pain Comparison Study: CT CT AB PEL WITH IV CON ONLY on DOS: 06/15/24 Exam Date: 02/01/2025 03:26 PM Radiation Dose Information: CT Dose: CTDI volume is 22.9 mGy. Dose-length product is 1316.88 mGy*cm TECHNIQUE: Multidetector CT of the abdomen and pelvis was performed. Imaging was performed without IV contrast. Axial, coronal and sagittal multiplanar reformats were obtained from the axial data set by the technologist. FINDINGS: Lack of intravenous contrast compromises evaluation of perfusion and for isodense lesions. Lower chest: Bibasilar atelectasis/scarring. Liver: Decreased in attenuation diffusely Biliary system: Unremarkable Spleen: Unremarkable Pancreas: Mildly atrophic. Adrenals: Unremarkable. Kidneys and ureters: No hydronephrosis Bowel: No obstruction. Normal appendix. Scattered colonic diverticula. Bladder: Unremarkable Reproductive organs: No abnormal mass. Lymph nodes: Unremarkable. Peritoneum: Unremarkable Vessels: Patency not evaluated on this noncontrast study. Bones and soft tissue: No aggressive osseous lesion IMPRESSION: No acute CT findings in the abdomen and pelvis.
[2025-02-01] MEDS ORDERED: NITR-87 PO (16:38)
[2025-02-01] MEDS: KETOROLAC TROMETH 30 MG/ML 1ML VIAL IM ONE (17:19)
== END 2025-02-01 17:26 | disposition home or self-care (01) ==
LOC: ER 13:53
DX: N39.0 Urinary tract infection, site not specified (principal); I10 Essential (primary) hypertension; J44.9 Chronic obstructive pulmonary disease, unspecified; Z79.899 Other long term (current) drug therapy; Z88.1 Allergy status to other antibiotic agents; Z88.8 Allergy status to other drugs, medicaments and biological substances; Z90.49 Acquired absence of other specified parts of digestive tract; Z90.89 Acquired absence of other organs
CPT/HCPCS: 36415; 74176; 80048; 81001; 85025; 96372; 99285; J1885